=== PATIENT | male | born 2005 | race African-American/Black ===

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

== ENCOUNTER 2024-09-04 20:06 | Emergency (ER) | payer SELFPAY ==
[2024-09-04 20:23] VITALS: BP 132/96; PULSE 74; TEMP 36.8; O2SAT 96; BMI 25.7
--- OUTSIDE RECORDS SUMMARY | 2024-09-04 20:27 | XMS_ITS | CCD ---
Author Organization [facility] Care Team Providers Care Supervisor Dried Yeast Name Role Phone SERVICES, [facility] Primary Care Unava ilable NO PCP, NO PCP Primary Care Unavailable NO PCP, NO PCP Primary Care Unavailable SHELIA OROZCO Attending Unavailable NO PCP, NO PCP Primary Care Unavailable MARYJANE JACKSON Attending Unavailable NO PCP, NO PCP Primary Care Unavailable JONE COLORADO Attending Unavailable Problems Active Problems Problem Classification Problem Date Documented Da te Episodic/Chronic Headache; including migraine (1 source) Other migraine, not intractable, without status migrainosus; Translations: [Other migraine, not intractable, without status migrainosus] Onset: 01-21-2024 Chronic Headache; including migraine (2 sources) Headache; including migraine; Translations: [Headache, unspecified] Onset: 03-05-2024 Other connective tissue disease (1 source) Pain in right foot; Translations: [Pain in right foot] Onset: 06-30-2024 Episodic Other connective tissue disease (1 source) Pain in left foot; Translations: [Pain in left foot] Onset: 06-30-2024 Episodic Other connective tissue disease (1 source) Foot pain Onset: 06-30-2024 Episodic Unclassified (2 sources) Rash Onset: 11-29-2023 Past or Other Problems Problem Classification Problem Date Documented Da te Episodic/Chronic Allergic reactions (1 source) Dermatitis, unspecified; Translations: [Dermatitis, unspecified] Onset: 11-29-2023 Episodic Headache; including migraine (1 source) Headache Onset: 01-21-2024 Episodic Mycoses (1 source) Tinea cruris; Translations: [Tinea cruris] Onset: 11-29-2023 Episodic Results Test Name Value Interpretation Reference Range Facil ity CHLAMYDIA/GC PCR, Uon 2023 CHLAMYDIA/GC PCR, U CHLAMYDIA PCR, U Negative (qualifier value) Chlamydia trachomatis not detected by nucleic acid amplification. This does not exclude the possibility of infection because results are dependent on adequate specimen collection. GONORRHOEAE PCR, U Negative (qualifier value) Neisseria gonorrhoeae not detected by nucleic acid amplification. This does not exclude the possibility of infection because results are dependent on adequate specimen collection. Normal [facility] Comment on above: Performed By: #### C GUPCR #### [facility] ([id number]) [address] [place] [address], [address] [address] T. pallidum IgG+IgM IA Ql (S )on 11-29-2023 Syphilis Total <0.2 Normal 0.0-0.8 [facility] Comment on above: Result Comment: NON REACTIVE No serologic evidence of infection to Treponema pallidum (syphilis). Repeat testing may be considered in patients with suspected acute or primary syphilis in 2 to 4 weeks. Performed By: #### [id number] #### [facility] ([id number]) [address] [place] [address], [address] [address] TRICHOMONAS PCRon 11-29-2023 TRICHOMONAS PCR SPECIMEN SOURCE URINE Corrected on 11/28 AT 1904: Previously reported as URINE MULTISTIX NEGATIVE CONTROL TRICHOMONAS PCR Not detected (qualifier value) Trichomonas vaginalis not detected NOTE Assay methodology is nucleic acid amplification by real-time PCR for detection of Trichomonas vaginalis DNA performed on [employer] GeneXpert Instrument System. Normal [facility] Comment on above: Performed By: #### T RKPCR #### [facility] ([id number]) [address] [place] [address], [address] [address] URN MACROSCOPIC NURon 2023 BILIRUBIN ROSHAN Negative Normal NEG [facility] Comment on above: Performed By: #### N UM #### [facility] ([id number]) [address] [place] [address] BLOOD/HGB ROSHAN Negative Normal NEG [facility] Comment on above: Performed By: #### N UM #### [facility] ([id number]) [address] [place] [address] [place] [address] GLUCOSE ROSHAN Negative Normal NEG [facility] Comment on above: Performed By: #### N UM #### [facility] ([id number]) [address] [place] [address] [place] [address] KETONES ROSHAN Negative Normal NEG [facility] Comment on above: Performed By: #### N UM #### [facility] ([id number]) [address] [place] [address] [place] [address] LEUKOCYTE ESTERASE ROSAHN Negative Normal NEG [facility] Comment on above: Performed By: #### N UM #### [facility] ([id number]) [address] [place] [address] NITRITE ROSHAN Negative Normal NEG [facility] Comment on above: Performed By: #### N UM #### [facility] ([id number]) [address] [place] [address] PH ROSHAN 6.0 Normal 5.0-8.5 [facility] Comment on above: Performed By: #### N UM #### [facility] ([id number]) [address] [place] [address] [place] [address] PROTEIN ROSHAN Negative Normal NEG [facility] Comment on above: Performed By: #### N UM #### [facility] ([id number]) [address] [place] [address] [place] [address] SPECIFIC GRAVITY ROSHAN 1.025 Normal 1.003-1.035 [facility] Comment on above: Performed By: #### N UM #### [facility] ([id number]) [address] [place] [address] [place] [address] UROBILINOGEN ROSHAN 1.0 eu/dL Normal <1.1 [facility] Comment on above: Performed By: #### N UM #### [facility] ([id number]) [address] [place], [place] [address], [place] [address] Encounters Encounter Date Encounter Type Care Provider Facility Start: 06-30-2024 End: 06-30-2024 Emergency department patient visit NO PCP NO PCP [facility] Start: 03-05-2024 End: 03-05-2024 Emergency department patient visit NO PCP NO PCP [facility] Start: 01-21-2024 End: 01-21-2024 Emergency department patient visit NO PCP NO PCP [facility] Start: 11-30-2023 End: 11-30-2023 Emergency department patient visit NO PCP NO PCP [facility] Start: 11-29-2023 End: 11-29-2023 Emergency department patient visit [facility] Payers Date Payer Category Payer Medicaid [id number] 2005 Unknown [id number] Summary Purpose Family History No Family History Records Found Advance Directives No Advanced Directives Records Found Additional Source Comments (unrecognized sect ion and content) No Status Records Found INFORMATION SOURCE (unrecogn ized section and content) DATE CREATED AUTHOR 07/02/2024 [facility] FOR RECORDS PERTAINING TO PATIENTS WHO ARE OR HAVE BEEN ENROLLED IN A CHEMICAL DEPENDENCY/SUBSTANCEABUSE PROGRAM, SOME INFORMATION MAY BE OMITTED. This clinical summary was aggregated from multiple sources. Caution should be exercised in using it in the provision of clinical care. This summary normalizes information from multiple sources, and as a consequence, information in this document may materially change the coding, format and clinical context of patient data. In addition, data may be omitted in some cases. CLINICAL DECISIONS SHOULD BE BASED ON THE PRIMARY CLINICAL RECORDS. [employer] [facility]. provides no warranty or guarantee of the accuracy or completeness of information in this document.
== END 2024-09-04 21:53 | disposition left against medical advice (07) ==
PROVIDERS: Emergency Provider Internal Medicine
DX: Z53.21 Procedure and treatment not carried out due to patient leaving prior to being seen by health care provider (principal)